=== PATIENT | male | born 1990 | race Caucasian/White ===

== ENCOUNTER 2021-07-06 19:32 | Emergency (ER) | payer SELFPAY ==
[~2021-07-06] VITALS: Ht 182.9 cm; Wt 98.0 kg
[2021-07-06] MEDS ORDERED: IBUP-2028 PO (21:18)
[2021-07-06 21:36] VITALS: BP 136/73
== END 2021-07-06 21:38 | disposition home or self-care (01) ==
LOC: ER 19:32
DX: K04.7 Periapical abscess without sinus (principal); Z98.890 Other specified postprocedural states
CPT/HCPCS: 99282